=== PATIENT | female | born 1960 | race Caucasian/White ===

== ENCOUNTER 2017-12-21 05:40 | Emergency (ER) | payer OTHER ==
[2017-12-21 06:15] LABS: BASOPHIL (%) 0.7 % (0-1); BASOPHIL COUNT 0.1 K/uL (0-0.1); EOSINOPHIL (%) 1.9 % (0-5); EOSINOPHIL COUNT 0.2 K/uL (0-0.3); HEMOGLOBIN 11.7 G/DL (11.9-15.5); IMMATURE GRANULOCYTE (%) 0.4 % (0.0-0.7); LYMPHOCYTE (%) 18.2 % (15-42); LYMPHOCYTE COUNT 1.9 K/uL (1.0-2.8); MCH 28.7 PG (29.0-34.0); MCHC 33.4 G/DL (30.0-36.0); MONOCYTE COUNT 0.9 K/uL (0-0.8); NEUTROPHIL (%) 69.8 % (45-76); NEUTROPHIL COUNT 7.2 K/uL (1.8-6.4); PLATELET COUNT 278 K/uL (156-360); RBC DIS.WIDTH-CV 14.5 % (11.8-14.6); RED BLOOD COUNT 4.07 M/uL (3.80-5.20); WHITE BLOOD COUNT 10.4 K/uL (4.1-10.2)
[2017-12-21 06:21] LABS: INTER. NORMALIZED RATIO 1.1
[2017-12-21 06:25] LABS: PTT 24.8 SEC (25-37)
[2017-12-21 06:26] LABS: AMYLASE 24 IU/L (1-118); CHLORIDE 104 mEq/L (99-109); POTASSIUM 3.7 mEq/L (3.7-5.4); SODIUM 140 mEq/L (136-147)
[2017-12-21 06:28] LABS: GLUCOSE 171 mg/dL (70-99)
[2017-12-21 06:31] LABS: SERUM ETHYL ALCOHOL < 10 mg/dL
[2017-12-21 06:33] LABS: UREA NITROGEN (BUN) 24 mg/dL (9-23)
[2017-12-21 06:34] LABS: GFR ESTIMATE (CALCULATED) > 59 mL/min/
[2017-12-21 06:35] LABS: LIPASE 23 U/L (1.0-51.0)
[2017-12-21] MEDS ORDERED: FLEXERIL10 MG PO (07:02)
[2017-12-21] MEDS ORDERED: NORCO 5/3251 TABLET PO (07:02)
[2017-12-21 07:24] LABS: TROP-I INTERPRETATION NEGATIVE; TROPONIN-I < 0.01 ng/mL (0.0-0.30)
== END 2017-12-21 08:14 | disposition home or self-care (01) ==
LOC: TRA 05:40
PROVIDERS: Emergency Medicine
DX: S20.211A Contusion of right front wall of thorax, initial encounter (principal); S30.1XXA Contusion of abdominal wall, initial encounter; V49.50XA Passenger injured in collision with unspecified motor vehicles in traffic accident, initial encounter; Y92.410 Unspecified street and highway as the place of occurrence of the external cause
CPT/HCPCS: 70450; 70486; 70498; 71260; 72125; 72129; 72132; 74177; 80048; 81003; 82150; 83690; 84484; 85025; 85610; 85730; 86850; 86900; 86901; 93005; 99281; 99285; G0480; J2405